=== PATIENT | female | born 1945 | race Caucasian/White ===

== ENCOUNTER 2022-12-08 21:31 | Inpatient (IN) ==
[2022-12-09 00:20] LABS: Venous Bicarbonate HCO3 16.6 mmol/L (24-28)
[2022-12-09 00:43] LABS: Albumin 2.8 g/dL (3.2-5.2); Albumin/Globulin Ratio 1.5 (1-3); Calcium 7.5 mg/dL (8.6-10.3); Creatinine, Serum 8.91 mg/dL (0.51-0.95); Globulin 1.9 g/dL (2-4); Magnesium 2.5 mg/dL (1.9-2.7); Phosphorus 7.5 mg/dL (2.5-5.0); Total Bilirubin 0.4 mg/dL (0.2-1.0); Total Protein 4.7 g/dL (6.4-8.9); Uric Acid 13.8 mg/dL (2.3-6.6); eGFR CKD-EPI 4.2 (>60)
[2022-12-09 00:56] LABS: TSH Ultra Thyroid Stim Horm 0.72 mcIU/mL (0.34-5.60)
[2022-12-09 00:59] LABS: Potassium 5.2 mmol/L (3.5-5.0)
[2022-12-09 01:06] LABS: Activated Partial Thrombo Time 28.4 seconds (26.0-38.0); INR 1.9 (0.88-1.18)
[2022-12-09] MEDS ORDERED: NS 0.9% 1000 ml BAG 1,000 ML IV ONE (02:07)
[2022-12-09 02:18] LABS: High Sensitivity Troponin 1 Hr 327 pg/mL (<15)
[2022-12-09] MEDS ORDERED: Albuterol HFA INHALER 8 gm MDI INH PRN (02:34)
[2022-12-09] MEDS ORDERED: NS 0.9% 1000 ml BAG 1,000 ML IV SCH (02:45)
[2022-12-09] MEDS ORDERED: RASBURICASE IVPB SCH (03:00)
[2022-12-09] MEDS ORDERED: Rasburicase 1.5 MG VIAL(NF) IVPB SCH (03:00)
[2022-12-09] MEDS ORDERED: NS 0.9% IVPB SCH (03:00)
[2022-12-09] MEDS: Acetaminophen IV 1 GM/100ML 1,000 MG/100 ML BAG IV PRN ×2 (04:47→14:43)
[2022-12-09 06:16] LABS: Venous Bicarbonate HCO3 15.2 mmol/L (24-28)
[2022-12-09 06:20] LABS: Hematocrit 21 % (35-47); Hemoglobin 6.5 g/dL (12.0-16.0)
[2022-12-09 06:44] LABS: Calcium 6.9 mg/dL (8.6-10.3); Creatinine, Serum 8.57 mg/dL (0.51-0.95); Magnesium 2.4 mg/dL (1.9-2.7); Phosphorus 6.9 mg/dL (2.5-5.0); Potassium 4.7 mmol/L (3.5-5.0); Uric Acid 4.5 mg/dL (2.3-6.6); eGFR CKD-EPI 4.4 (>60)
[2022-12-09] MEDS: Pantoprazole VIAL 40 MG VIAL IV SCH (08:55)
[2022-12-09 13:08] LABS: Hepatitis B Surface Antigen Nonreactive (Nonreactive)
[2022-12-09 13:25] LABS: ABS Lymphocytes 0.4 10^3/ul (1.0-4.8); ABS Neutrophils 56.5 10^3/ul (1.5-7.7); Hematocrit 26 % (35-47); Hemoglobin 7.9 g/dL (12.0-16.0); Mean Corpuscular HGB Conc 30 g/dL (31-36); Mean Corpuscular Hemoglobin 28 pg (27-31); Mean Corpuscular Volume 91 fL (80-97); Mean Platelet Volume 6.7 fL (7.4-10.4); Platelet Count 241 10^3/uL (150-450); Red Blood Count 2.89 10^6 /uL (3.70-4.87); Red Cell Distribution Width 15 % (10-15); White Blood Count 58.1 10^3/uL (3.5-10.8)
[2022-12-09 13:26] LABS: ABS Basophils 0.1 10^3/ul (0-0.2); ABS Monocytes 1.1 10^3/ul (0-0.8); Lymphocyte % 0.6 %
[2022-12-09 13:27] LABS: Hepatitis B Surface Ab Immune (Immune)
[2022-12-09 14:53] LABS: Hematocrit 28 % (35-47); Hemoglobin 9.4 g/dL (12.0-16.0); Mean Corpuscular HGB Conc 34 g/dL (31-36); Mean Corpuscular Hemoglobin 30 pg (27-31); Mean Corpuscular Volume 90 fL (80-97); Mean Platelet Volume 6.5 fL (7.4-10.4); Platelet Count 160 10^3/uL (150-450); Red Cell Distribution Width 15 % (10-15); White Blood Count 42.7 10^3/uL (3.5-10.8)
[2022-12-09 14:58] LABS: ABS Basophils 0.1 10^3/ul (0-0.2); ABS Lymphocytes 0.3 10^3/ul (1.0-4.8); ABS Neutrophils 41.3 10^3/ul (1.5-7.7); Lymphocyte % 0.7 %
[2022-12-09] MEDS ORDERED: Norepinephrine 16MCG/ML BAGD5W 4,000 MCG/250 ML BAG IV ONE (15:20)
[2022-12-09] MEDS: Norepinephrine 16MCG/ML BAGD5W 4,000 MCG/250 ML BAG IV SCH (15:40)
[2022-12-09 16:16] LABS: Anion Gap 14 mmol/L (2-11); Blood Urea Nitrogen 34 mg/dL (6-24); CO2 Carbon Dioxide 20 mmol/L (22-32); Calcium 7.2 mg/dL (8.6-10.3); Chloride 99 mmol/L (101-111); Creatinine, Serum 4.68 mg/dL (0.51-0.95); Glucose 105 mg/dL (70-100); Magnesium 1.8 mg/dL (1.9-2.7); Phosphorus 3.9 mg/dL (2.5-5.0); Potassium 3.3 mmol/L (3.5-5.0); Sodium 133 mmol/L (135-145); Uric Acid < 1.7 mg/dL (2.3-6.6)
[2022-12-09] MEDS ORDERED: Lorazepam PYXIS KEY PRN (19:27)
[2022-12-09] MEDS ORDERED: LORazepam 2 mg VIAL 1 ml IV PUSH ONE (19:27)
[2022-12-09 20:52] LABS: Hematocrit 29 % (35-47); Hemoglobin 9.4 g/dL (12.0-16.0); Mean Corpuscular HGB Conc 32 g/dL (31-36); Mean Corpuscular Hemoglobin 29 pg (27-31); Mean Corpuscular Volume 90 fL (80-97); Mean Platelet Volume 6.6 fL (7.4-10.4); Platelet Count 228 10^3/uL (150-450); Red Blood Count 3.25 10^6 /uL (3.70-4.87); Red Cell Distribution Width 15 % (10-15); White Blood Count 54.1 10^3/uL (3.5-10.8)
[2022-12-09 21:20] LABS: Anion Gap 10 mmol/L (2-11); Blood Urea Nitrogen 40 mg/dL (6-24); CO2 Carbon Dioxide 22 mmol/L (22-32); Calcium 7.2 mg/dL (8.6-10.3); Chloride 98 mmol/L (101-111); Creatinine, Serum 5.34 mg/dL (0.51-0.95); Glucose 107 mg/dL (70-100); Magnesium 1.9 mg/dL (1.9-2.7); Phosphorus 4.8 mg/dL (2.5-5.0); Potassium 3.6 mmol/L (3.5-5.0); Sodium 130 mmol/L (135-145); Uric Acid < 1.7 mg/dL (2.3-6.6); eGFR CKD-EPI 7.7 (>60)
[2022-12-09 21:23] LABS: ABS Basophils 0.2 10^3/ul (0-0.2); ABS Lymphocytes 0.4 10^3/ul (1.0-4.8); ABS Monocytes 1.4 10^3/ul (0-0.8); ABS Neutrophils 52.1 10^3/ul (1.5-7.7); Lymphocyte % 0.7 %
[2022-12-10] MEDS: Acetaminophen IV 1 GM/100ML 1,000 MG/100 ML BAG IV PRN (04:18)
[2022-12-10 04:23] LABS: Hematocrit 30 % (35-47); Hemoglobin 9.4 g/dL (12.0-16.0); Mean Corpuscular HGB Conc 32 g/dL (31-36); Mean Corpuscular Hemoglobin 29 pg (27-31); Mean Corpuscular Volume 90 fL (80-97); Mean Platelet Volume 6.4 fL (7.4-10.4); Platelet Count 204 10^3/uL (150-450); Red Blood Count 3.27 10^6 /uL (3.70-4.87); Red Cell Distribution Width 15 % (10-15); White Blood Count 54.5 10^3/uL (3.5-10.8)
[2022-12-10 04:45] LABS: ABS Basophils 0.3 10^3/ul (0-0.2); ABS Lymphocytes 0.5 10^3/ul (1.0-4.8); ABS Monocytes 1.4 10^3/ul (0-0.8); ABS Neutrophils 52.2 10^3/ul (1.5-7.7); Lymphocyte % 0.9 %
[2022-12-10 05:02] LABS: Anion Gap 11 mmol/L (2-11); Blood Urea Nitrogen 43 mg/dL (6-24); CO2 Carbon Dioxide 21 mmol/L (22-32); Calcium 7.4 mg/dL (8.6-10.3); Chloride 99 mmol/L (101-111); Creatinine, Serum 5.74 mg/dL (0.51-0.95); Glucose 77 mg/dL (70-100); Phosphorus 5.2 mg/dL (2.5-5.0); Potassium 3.7 mmol/L (3.5-5.0); Sodium 131 mmol/L (135-145); Uric Acid < 1.7 mg/dL (2.3-6.6); eGFR CKD-EPI 7.1 (>60)
[2022-12-10] MEDS: Pantoprazole VIAL 40 MG VIAL IV SCH (10:23)
[2022-12-10] MEDS: Norepinephrine 16MCG/ML BAGD5W 4,000 MCG/250 ML BAG IV SCH (16:46)
[2022-12-11 05:12] LABS: Hematocrit 28 % (35-47); Hemoglobin 8.8 g/dL (12.0-16.0); Mean Corpuscular HGB Conc 32 g/dL (31-36); Mean Corpuscular Hemoglobin 29 pg (27-31); Mean Corpuscular Volume 91 fL (80-97); Mean Platelet Volume 6.9 fL (7.4-10.4); Platelet Count 178 10^3/uL (150-450); Red Blood Count 3.04 10^6 /uL (3.70-4.87); Red Cell Distribution Width 15 % (10-15)
[2022-12-11 05:50] LABS: Albumin 2.4 g/dL (3.2-5.2); Albumin/Globulin Ratio 1.3 (1-3); Calcium 7.7 mg/dL (8.6-10.3); Creatinine, Serum 6.77 mg/dL (0.51-0.95); Globulin 1.8 g/dL (2-4); Magnesium 2.1 mg/dL (1.9-2.7); Potassium 4.5 mmol/L (3.5-5.0); Total Bilirubin 0.4 mg/dL (0.2-1.0); Total Protein 4.2 g/dL (6.4-8.9); eGFR CKD-EPI 5.8 (>60)
[2022-12-11] MEDS: Pantoprazole VIAL 40 MG VIAL IV SCH (08:11)
[2022-12-11] MEDS ORDERED: Dextrose 50% VIAL 50 ml IV PRN (12:38)
[2022-12-11 22:10] LABS: Hematocrit 27 % (35-47); Hemoglobin 8.8 g/dL (12.0-16.0)
[2022-12-12 06:22] LABS: Hematocrit 27 % (35-47); Hemoglobin 8.8 g/dL (12.0-16.0); Mean Corpuscular HGB Conc 33 g/dL (31-36); Mean Corpuscular Hemoglobin 30 pg (27-31); Mean Corpuscular Volume 91 fL (80-97); Mean Platelet Volume 6.9 fL (7.4-10.4); Platelet Count 190 10^3/uL (150-450); Red Blood Count 2.93 10^6 /uL (3.70-4.87); Red Cell Distribution Width 15 % (10-15); White Blood Count 55.1 10^3/uL (3.5-10.8)
[2022-12-12 07:11] LABS: Calcium 7.6 mg/dL (8.6-10.3); Creatinine, Serum 5.09 mg/dL (0.51-0.95); Magnesium 1.8 mg/dL (1.9-2.7); Potassium 3.7 mmol/L (3.5-5.0); eGFR CKD-EPI 8.2 (>60)
[2022-12-12] MEDS: DULoxetine DR 60 mg CAP PO SCH (07:54)
[2022-12-12] MEDS: Pantoprazole VIAL 40 MG VIAL IV SCH (07:54)
[2022-12-12] MEDS: Acetaminophen IV 1 GM/100ML 1,000 MG/100 ML BAG IV PRN (09:01)
[2022-12-13 05:15] LABS: Hematocrit 26 % (35-47); Hemoglobin 7.9 g/dL (12.0-16.0); Mean Corpuscular HGB Conc 31 g/dL (31-36); Mean Corpuscular Hemoglobin 28 pg (27-31); Mean Corpuscular Volume 92 fL (80-97); Mean Platelet Volume 6.9 fL (7.4-10.4); Platelet Count 216 10^3/uL (150-450); Red Blood Count 2.84 10^6 /uL (3.70-4.87); Red Cell Distribution Width 15 % (10-15); White Blood Count 76.9 10^3/uL (3.5-10.8)
[2022-12-13 05:48] LABS: ABS Basophils 0.1 10^3/ul (0-0.2); ABS Lymphocytes 0.9 10^3/ul (1.0-4.8); ABS Neutrophils 72.3 10^3/ul (1.5-7.7); Lymphocyte % 1.2 %
[2022-12-13 05:53] LABS: Calcium 7.6 mg/dL (8.6-10.3); Creatinine, Serum 5.46 mg/dL (0.51-0.95); Potassium 3.8 mmol/L (3.5-5.0); eGFR CKD-EPI 7.5 (>60)
[2022-12-13] MEDS ORDERED: Potassium Chlor 20 meq TAB.ER PO ONE (06:20)
[2022-12-13] MEDS: Pantoprazole VIAL 40 MG VIAL IV SCH (08:17)
[2022-12-13] MEDS: DULoxetine DR 60 mg CAP PO SCH (08:17)
[2022-12-13] MEDS ORDERED: Ondansetron 4 mg VIAL 2 MG/ML 2 ml VIAL IV PRN (09:47)
[2022-12-13] MEDS: Acetaminophen IV 1 GM/100ML 1,000 MG/100 ML BAG IV PRN (14:44)
[2022-12-13] MEDS ORDERED: FLUTICAS/UMECLI/VILANT 100-62.5-25 MDI (NF) INH SCH (17:15)
[2022-12-13] MEDS ORDERED: Furosemide 20 mg/2 ml IV VIAL IV ONE (17:33)
[2022-12-13 17:40] LABS: Hematocrit 28 % (35-47); Hemoglobin 8.5 g/dL (12.0-16.0)
[2022-12-13] MEDS ORDERED: Morphine 2 MG/ML SYRINGE IV PRN (18:53)
[2022-12-13] MEDS: Albuterol/Ipratropium NEB.SOL (2.5/0.5 MG) 3 ML NEB.SOLN INH SCH ×2 (19:12→23:22)
[2022-12-13 20:35] LABS: Calcium 7.9 mg/dL (8.6-10.3); Creatinine, Serum 6.23 mg/dL (0.51-0.95); Potassium 4.8 mmol/L (3.5-5.0); eGFR CKD-EPI 6.4 (>60)
[2022-12-13 20:53] LABS: PCO2 Arterial 51 mmHg (35-45); PO2 Arterial 99 mmHg (80-100)
[2022-12-13] MEDS ORDERED: Rocuronium 50 mg VIAL 10 mg/ml 5 ml VIAL (50 mg) ONE (22:01)
[2022-12-13] MEDS ORDERED: Propofol 10 mg/ml 100 ML BTL 1,000 MG/100 ML BTL ONE (22:02)
[2022-12-13] MEDS ORDERED: Succinylcholine 200 mg VIAL 20 mg/ml 10 ml VIAL (200 mg) ONE ×2 (22:08→22:22)
[2022-12-13] MEDS ORDERED: Norepinephrine 16MCG/ML BAGD5W 4,000 MCG/250 ML BAG IV ONE (22:10)
[2022-12-13] MEDS ORDERED: Ketamine HCL 50 mg/ml 10 ml VIAL (500 MG) ONE (22:22)
[2022-12-13] MEDS ORDERED: Furosemide 40 mg/4 ml IV VIAL IV ONE (22:54)
[2022-12-13] MEDS ORDERED: Furosemide 40 mg/4 ml IV VIAL ONE (22:56)
[2022-12-13] MEDS ORDERED: fentaNYL 100 mcg/2 ml 50 MCG/ML VIAL ONE (22:59)
[2022-12-13] MEDS ORDERED: fentaNYL 100 mcg/2 ml 50 MCG/ML VIAL IV SLOW PU ONE (22:59)
[2022-12-13] MEDS ORDERED: Propofol 10 mg/ml 100 ML BTL 1,000 MG/100 ML BTL IV SCH (23:00)
[2022-12-13] MEDS ORDERED: Norepinephrine 16MCG/ML BAGD5W 4,000 MCG/250 ML BAG IV SCH ×2 (23:00→23:25)
[2022-12-14 00:39] LABS: PCO2 Arterial 37 mmHg (35-45); PO2 Arterial 84 mmHg (80-100)
[2022-12-14 01:04] LABS: Hematocrit 28 % (35-47); Hemoglobin 8.4 g/dL (12.0-16.0)
[2022-12-14] MEDS ORDERED: Ondansetron 4 mg VIAL 2 MG/ML 2 ml VIAL IV PRN (05:07)
[2022-12-14] MEDS ORDERED: LORazepam 2 mg VIAL 1 ml IV PUSH PRN (05:07)
[2022-12-14] MEDS ORDERED: Lorazepam PYXIS KEY ONE (05:16)
[2022-12-14] MEDS ORDERED: Scopolamine 1 mg/72hr PATCH TRANSDERM SCH (06:00)
[2022-12-14 06:27] VITALS: BP 94/50
[2022-12-14] MEDS: Albuterol/Ipratropium NEB.SOL (2.5/0.5 MG) 3 ML NEB.SOLN INH SCH (06:36)
== END 2022-12-14 07:50 | disposition expired | DRG 674 ==
LOC: ICU 23:28
PROVIDERS: ADMIT Internal Medicine; ATTEND Internal Medicine